=== PATIENT | female | born 1960 | race Caucasian/White ===

== ENCOUNTER 2020-03-02 16:10 | Emergency (ER) | payer SELFPAY ==
[2020-03-02] MEDS ORDERED: Sodium Chloride 0.9% 10 ML Syringe FLUSH PRN (16:30)
--- NOTE | 2020-03-02 16:34 | EDM.PDOC ---
ED HPI GENERAL MEDICAL PROBLEM - General Chief Complaint: General Stated Complaint: LOW POTASSIUM Time Seen by Provider: 03/02/20 16:24 Source of Information: Reports: Patient, RN Notes Reviewed History Limitations: Reports: No Limitations - History of Present Illness INITIAL COMMENTS - FREE TEXT/NARRATIVE: Patient is a 60-year-old female who presents to the ED for the evaluation of her low potassium. Patient went to the clinic to see her regular provider Carla White in [place], [place] and was found to have a low potassium level of 2.9. She was then sent here for evaluation. Patient notes that she has been having issues with diarrhea on and off since October. She does note that if for a few days it can get fairly bad where she has diffuse amounts of diarrhea, and then it gets better. She tries to drink Gatorade, Powerade and stick to clear liquid diet. She notes that Saturday was a pretty bad day for her. Otherwise she has a little bit of abdominal tenderness, her provider is working her up for gallbladder issues. Patient denies any other sick-like symptoms, fever/chills, cough/shortness of breath, nausea/vomiting/diarrhea. - Related Data Allergies Allergy/AdvReac Type Severity Reaction Status Date / Time No Known Allergies Allergy Verified 03/02/20 16:25 Home Meds: Home Meds Loratadine [Claritin] 10 mg PO DAILY 03/02/20 [History] Past Medical History - Past Surgical History Female Surgical History: Reports: Tubal Ligation Musculoskeletal Surgical History: Reports: Shoulder Surgery Social & Family History - Tobacco Use Tobacco Use Status *Q: Current Every Day Tobacco User Years of Tobacco use: 20 Packs/Tins Daily: 0.5 - Caffeine Use Caffeine Use: Reports: None - Recreational Drug Use Recreational Drug Use: No ED ROS GENERAL - Review of Systems Review Of Systems: Comprehensive ROS is negative, except as noted in HPI. ED EXAM, GENERAL - Physical Exam Exam: See Below Exam Limited By: No Limitations General Appearance: Alert, WD/WN, No Apparent Distress Respiratory/Chest: No Respiratory Distress, Lungs Clear, Normal Breath Sounds, No Accessory Muscle Use, Chest Non-Tender Cardiovascular: Normal Peripheral Pulses, Regular Rate, Rhythm, No Edema Peripheral Pulses: 2+: Radial (L), Radial (R) GI/Abdominal: Normal Bowel Sounds, Soft, No Distention, No Mass, Tender (mild tenderness to RUQ/epigastrium) Extremities: Normal Inspection, Normal Capillary Refill Neurological: Alert, Oriented, Normal Cognition, No Motor/Sensory Deficits Psychiatric: Normal Affect, Normal Mood Skin Exam: Warm, Dry, Intact, Normal Color, No Rash Course - Vital Signs Last Recorded V/S: Last Vital Signs Temp 97.6 F 03/02/20 16:23 Pulse 101 H 03/02/20 16:23 Resp 16 03/02/20 16:23 BP 151/93 H 03/02/20 16:23 Pulse Ox 100 03/02/20 16:23 - Orders/Labs/Meds Orders: Active Orders 24 hr Category Date Time Status Peripheral IV Care [RC] . DIRECTED Care 03/02/20 16:30 Ordered Sodium Chloride 0.9% [Normal Saline] 1,000 ml Med 03/02/20 17:45 Ordered IV ONETIME Sodium Chloride 0.9% [Saline Flush] Med 03/02/20 16:30 Ordered 10 ml FLUSH ASDIRECTED PRN Peripheral IV Insertion Adult [OM.PC] Routine Oth 03/02/20 16:30 Ordered Medication Orders Sodium Chloride (Normal Saline) 1,000 mls @ 250 mls/hr IV ONETIME ONE Stop: 03/02/20 21:44 Sodium Chloride (Saline Flush) 10 ml FLUSH ASDIRECTED PRN PRN Reason: Keep Vein Open Labs: Laboratory Tests 03/02/20 03/02/20 Range/Units 17:03 17:03 WBC 7.97 (3.98-10.04) K/mm3 RBC 4.59 (3.98-5.22) M/mm3 Hgb 13.2 (11.2-15.7) gm/dl Hct 40.0 (34.1-44.9) % MCV 87.1 (79.4-94.8) fl MCH 28.8 (25.6-32.2) pg MCHC 33.0 (32.2-35.5) g/dl RDW Std Deviation 45.3 (36.4-46.3) fL Plt Count 490 H (182-369) K/mm3 MPV 8.7 L (9.4-12.3) fl Neut % (Auto) 52.3 (34.0-71.1) % Lymph % (Auto) 36.6 (19.3-51.7) % Rogers % (Auto) 9.4 (4.7-12.5) % Eos % (Auto) 1.5 (0.7-5.8) Baso % (Auto) 0.1 (0.1-1.2) % Neut # (Auto) 4.16 (1.56-6.13) K/mm3 Lymph # (Auto) 2.92 (1.18-3.74) K/mm3 Rogers # (Auto) 0.75 H (0.24-0.36) K/mm3 Eos # (Auto) 0.12 (0.04-0.36) K/mm3 Baso # (Auto) 0.01 (0.01-0.08) K/mm3 Sodium 145 (136-145) mEq/L Potassium 2.7 L (3.5-5.1) mEq/L Chloride 106 (98-107) mEq/L Carbon Dioxide 24 (21-32) mEq/L Anion Gap 17.7 H (5-15) BUN 15 (7-18) mg/dL Creatinine 0.8 (0.55-1.02) mg/dL Est Cr Clr Drug Dosing 67.29 mL/min Estimated GFR (MDRD) > 60 (>60) mL/min BUN/Creatinine Ratio 18.8 H (14-18) Glucose 90 (74-106) mg/dL Calcium 9.5 (8.5-10.1) mg/dL Magnesium 1.9 (1.8-2.4) mg/dl Total Bilirubin 0.5 (0.2-1.0) mg/dL AST 15 (15-37) U/L ALT 22 (14-59) U/L Alkaline Phosphatase 117 H (46-116) U/L Total Protein 7.5 (6.4-8.2) g/dl Albumin 4.0 (3.4-5.0) g/dl Globulin 3.5 gm/dL Albumin/Globulin Ratio 1.1 (1-2) Meds: Medications Generic Name Dose Route Start Last Admin Trade Name Freq PRN Reason Stop Dose Admin Sodium Chloride 1,000 mls @ 250 mls/hr 03/02/20 17:45 Normal Saline IV 03/02/20 21:44 ONETIME ONE Sodium Chloride 10 ml 03/02/20 16:30 Saline Flush FLUSH ASDIRECTED PRN Keep Vein Open Discontinued Medications Generic Name Dose Route Start Last Admin Trade Name Danelle PRN Reason Stop Dose Admin Potassium Chloride 10 meq/ 100 mls @ 100 mls/hr 03/02/20 17:45 Premix IV 03/02/20 21:44 Q1H GEORGINA Potassium Chloride 40 meq 03/02/20 17:44 03/02/20 18:25 Klor-Con M20 PO 03/02/20 17:45 40 meq ONETIME ONE Administration Potassium Chloride 40 meq 03/02/20 18:08 03/02/20 18:25 Klor-Con M20 PO 03/02/20 18:09 40 meq ONETIME ONE Administration - Re-Assessments/Exams Free Text/Narrative Re-Assessment/Exam: 03/02/20 16:33 Patient presents to the ED for the evaluation of her low potassium. We will get repeat labs, along with a magnesium level, plan is to give IV supplementation and oral supplementation and redraw potassium and have her follow-up with her regular provider soon. 03/02/20 17:51 The patient's potassium level is 2.7 her magnesium level is within normal limits. We will give her 40 mg once p.o. potassium and 40 mg IV potassium, along with some IV fluids to help facilitate the IV potassium. 03/02/20 18:08 The patient states that she has to be back early in the morning for an ultrasound and would rather not stay for 4 hours for IV potassium. I have canceled the IV potassium and will supplement with another 40 mEq p.o. potassium. Patient will call her provider and have her labs rechecked tomorrow. Departure - Departure Time of Disposition: 18:31 Disposition: Home, Self-Care 01 Condition: Good Clinical Impression: Hypokalemia - Discharge Information *PRESCRIPTION DRUG MONITORING PROGRAM REVIEWED*: No *COPY OF PRESCRIPTION DRUG MONITORING REPORT IN PATIENT BRIATNY: No Instructions: Potassium Content of Foods Referrals: Marquita White NP [Primary Care Provider] - Forms: ED Department Discharge Additional Instructions: You were seen in the ER today for your low potassium level. This was at a level of 2.7, you were given 2 doses of oral potassium for supplementation of this. Highly recommend you get your potassium level drawn, sometime tomorrow to see if your levels are within normal limits. Please discuss with your primary care provider, oral supplementation over the next few days, or while you are having issues with your chronic diarrhea. You may also supplement your potassium in your diet, a list of potassium content for foods was given to you in your discharge packet. Please return to the ER at any time if symptoms change or worsen. Sepsis Event Note (ED) - Evaluation Sepsis Screening Result: No Definite Risk - Focused Exam Vital Signs: Vital Signs Temp Pulse Resp BP Pulse Ox 03/02/20 16:23 97.6 F 101 H 16 151/93 H 100 - My Orders Last 24 Hours: My Active Orders 03/02/20 16:30 Peripheral IV Care [RC] . DIRECTED Sodium Chloride 0.9% [Saline Flush] 10 ml FLUSH ASDIRECTED PRN Peripheral IV Insertion Adult [OM.PC] Routine 03/02/20 17:45 Sodium Chloride 0.9% [Normal Saline] 1,000 ml IV ONETIME - Assessment/Plan Last 24 Hours: My Active Orders 03/02/20 16:30 Peripheral IV Care [RC] . DIRECTED Sodium Chloride 0.9% [Saline Flush] 10 ml FLUSH ASDIRECTED PRN Peripheral IV Insertion Adult [OM.PC] Routine 03/02/20 17:45 Sodium Chloride 0.9% [Normal Saline] 1,000 ml IV ONETIME
[2020-03-02] MEDS ORDERED: Potassium Chloride 20 MEQ Tab.ER PO ONE ×2 (17:44→18:08)
[2020-03-02] MEDS ORDERED: Potassium Chloride 10 MEQ in Premix Bag 1 BAG IV SCH (17:45)
[2020-03-02] MEDS ORDERED: Sodium Chloride 0.9% 1,000 ML IV ONE (17:45)
== END 2020-03-02 18:45 | disposition home or self-care (01) ==
LOC: JD.ED 16:10
DX: E87.6 Hypokalemia (principal); Z72.0 Tobacco use
CPT/HCPCS: 36415; 80053; 83735; 85025; 99284; A9270; 99283

== ENCOUNTER 2020-03-16 06:53 | Day surgery (SDC) | payer SELFPAY ==
[2020-03-16] MEDS ORDERED: Sodium Chloride 0.9% 10 ML Syringe FLUSH PRN (07:00)
[2020-03-16] MEDS ORDERED: Lactated Ringers 1,000 ML IV SCH (07:00)
[2020-03-16] MEDS ORDERED: Lidocaine 1%/Sod Bicarbonate in NS 8.4% 1 ML Syringe IDERM PRN (07:00)
[2020-03-16] MEDS ORDERED: Ondansetron 4 MG/2 ML SDV ONE (07:11)
[2020-03-16] MEDS ORDERED: Rocuronium 50 MG/5 ML Vial ONE (07:11)
[2020-03-16] MEDS ORDERED: Lidocaine 1% 4 ML ONE (07:11)
[2020-03-16] MEDS ORDERED: fentaNYL 250 MCG/5 ML SDV ONE (07:12)
[2020-03-16] MEDS ORDERED: Midazolam 1 MG/ML 2 ML SDV ONE (07:12)
[2020-03-16] MEDS ORDERED: ceFAZolin 1 GM Vial ONE (07:12)
[2020-03-16] MEDS ORDERED: Propofol 200 MG/20 ML SDV ONE (07:12)
[2020-03-16] MEDS ORDERED: Dexamethasone 4 MG/ML 5 ML MDV ONE (07:12)
[2020-03-16] MEDS ORDERED: Bupivacaine 0.5%/EPINEPHrine 1:200,000 50 ML MDV ONE (07:20)
--- NOTE | 2020-03-16 07:33 | PCM.PREANE ---
Preanesthetic Assessment - Procedure Proposed Procedure: lap choley - Anesthesia/Transfusion/Family Hx Anesthesia History: Prior Anesthesia Without Reaction Family History of Anesthesia Reaction: No Transfusion History: No Prior Transfusion(s) - Review of Systems General: No Symptoms Pulmonary: No Symptoms Cardiovascular: No Symptoms Gastrointestinal: Diarrhea Neurological: No Symptoms Other: Reports: None - Physical Assessment NPO Status Date: 03/15/20 NPO Status Time: 17:00 Vital Signs: Last Vital Signs Temp 97.2 F 03/16/20 06:55 Pulse 86 03/16/20 06:55 Resp 16 03/16/20 06:55 BP 146/95 H 03/16/20 06:55 Pulse Ox 98 03/16/20 06:55 Height: 5 ft 5 in Weight: 82.1 kg ASA Class: 2 Mental Status: Alert & Oriented x3 Airway Class: Mallampati = 1 Dentition: Reports: Partial Thyro-Mental Finger Breadths: 3 Mouth Opening Finger Breadths: 3 ROM/Head Extension: Full Lungs: Clear to Auscultation, Normal Respiratory Effort Cardiovascular: Regular Rate, Regular Rhythm - Allergies Allergies/Adverse Reactions: Allergies Allergy/AdvReac Type Severity Reaction Status Date / Time No Known Allergies Allergy Verified 03/15/20 12:50 - Blood Blood Available: No - Acknowledgements Anesthesia Type Planned: General Anesthesia Pt an Appropriate Candidate for the Planned Anesthesia: Yes Alternatives and Risks of Anesthesia Discussed w Pt/Guardian: Yes Pt/Guardian Understands and Agrees with Anesthesia Plan: Yes PreAnesthesia Questionnaire HEENT History: Reports: Impaired Vision, Other (See Below) Other HEENT History: wears glasses Cardiovascular History: Reports: High Cholesterol Respiratory History: Reports: None Gastrointestinal History: Reports: None Genitourinary History: Reports: None [employer] History: Reports: None Neurological History: Reports: None Psychiatric History: Reports: None Endocrine/Metabolic History: Reports: Obesity/BMI 30+ Hematologic History: Reports: None Immunologic History: Reports: None Oncologic (Cancer) History: Reports: None Dermatologic History: Reports: None - Infectious Disease History Infectious Disease History: Reports: None - Past Surgical History Head Surgeries/Procedures: Reports: None HEENT Surgical History: Reports: None Cardiovascular Surgical History: Reports: None Respiratory Surgical History: Reports: None GI Surgical History: Reports: Colonoscopy, EGD, Other (See Below) Other GI Surgeries/Procedures: egd with balloon dilation for esophageal stricture Female Surgical History: Reports: Tubal Ligation Male Surgical History: Reports: None Endocrine Surgical History: Reports: None Neurological Surgical History: Reports: None Musculoskeletal Surgical History: Reports: Shoulder Surgery Other Musculoskeletal Surgeries/Procedures:: right shoulder surgery in 2018 Oncologic Surgical History: Reports: None Dermatological Surgical History: Reports: None - SUBSTANCE USE Tobacco Use Status *Q: Current Some Day Tobacco User (quit for a week) Tobacco Use Within Last Twelve Months: Cigarettes Second Hand Smoke Exposure: Yes Days Per Week of Alcohol Use: 1 Number of Drinks Per Day: 1 Total Drinks Per Week: 1 Recreational Drug Use History: No - HOME MEDS Home Medications: Home Meds Loratadine [Claritin] 10 mg PO DAILY PRN 03/02/20 [History] Acetaminophen [Tylenol] 650 mg PO Q4H PRN 03/15/20 [History] Fluticasone Propionate [Flonase] 1 dose NASBOTH DAILY PRN 03/15/20 [History] Melatonin 3 mg PO BEDTIME PRN 03/15/20 [History] Omeprazole Magnesium [Prilosec Otc] 20 mg PO DAILY 03/15/20 [History] Potassium Chloride 20 meq PO BID 03/15/20 [History] Valerian/Flower/Hops/Lemon [Valerian Root-Herbal 450Mg Cap] 1 cap PO BEDTIME PRN 03/15/20 [History] - CURRENT (IN HOUSE) MEDS Current Meds: Current Medications Lactated Ringer's (Ringers, Lactated) 1,000 mls @ 125 mls/hr IV ASDIRECTED GEORGINA Stop: 03/16/20 23:00 Lidocaine/Sodium Bicarbonate (Buffered Lidocaine 1% In Ns 8.4%) 0.25 ml IDERM ONETIME PRN PRN Reason: Prior to IV Start Stop: 03/16/20 23:00 Sodium Chloride (Saline Flush) 10 ml FLUSH ASDIRECTED PRN PRN Reason: Keep Vein Open Stop: 03/16/20 23:00 Discontinued Medications Bupivacaine HCl/Epinephrine Bitart (Marcaine 0.5%/Epinephrine 1:200,000) Confirm Administered Dose 50 ml .ROUTE .STK-MED ONE Stop: 03/16/20 07:21 Cefazolin Sodium (Ancef) Confirm Administered Dose 2 gm .ROUTE .STK-MED ONE Stop: 03/16/20 07:13 Dexamethasone (Dexamethasone) Confirm Administered Dose 20 mg .ROUTE .STK-MED ONE Stop: 03/16/20 07:13 Fentanyl (Sublimaze) Confirm Administered Dose 250 mcg .ROUTE .STK-MED ONE Stop: 03/16/20 07:13 Lidocaine HCl (Xylocaine-Mpf 1%) Confirm Administered Dose 4 mls @ as directed .ROUTE .STK-MED ONE Stop: 03/16/20 07:12 Midazolam HCl (Versed 1 Mg/Ml) Confirm Administered Dose 2 mg .ROUTE .STK-MED ONE Stop: 03/16/20 07:13 Ondansetron HCl (Zofran) Confirm Administered Dose 4 mg .ROUTE .STK-MED ONE Stop: 03/16/20 07:12 Propofol (Diprivan 20 Ml) Confirm Administered Dose 200 mg .ROUTE .STK-MED ONE Stop: 03/16/20 07:13 Rocuronium Stanley (Zemuron) Confirm Administered Dose 50 mg .ROUTE .STK-MED ONE Stop: 03/16/20 07:12
[2020-03-16] MEDS ORDERED: Ondansetron 4 MG/2 ML SDV IVPUSH PRN (08:06)
[2020-03-16] MEDS ORDERED: HYDROmorphone 0.5 MG/0.5 ML Syringe IVPUSH PRN (08:06)
[2020-03-16] MEDS ORDERED: fentaNYL 100 MCG/2 ML SDV IVPUSH PRN (08:06)
[2020-03-16] MEDS ORDERED: Ketamine 500 mg/10 ML MDV ONE (08:16)
[2020-03-16] MEDS ORDERED: Lactated Ringers 1,000 ML ONE (08:19)
[2020-03-16] MEDS ORDERED: HYDROmorphone 0.5 MG/0.5 ML Syringe ONE (08:31)
[2020-03-16] MEDS ORDERED: Ketorolac 30 MG/ML SDV ONE (08:55)
--- NOTE | 2020-03-16 09:04 | PCM.PRNOTE ---
- Free Text/Narrative Note: Date: 03/16/2020 Operation: laparoscopic cholecystectomy Surgeon: Navin Mckee MD EBL: 10 cc Antibiotic: 2 g ancef IV pre-op Findings: mild chronic cholecystitis. Critical view of safety obtained. Small amount of bile spillage. Detailed Report: The patient was taken to the operating room and placed in supine position. Timeout was performed, and general endotracheal anesthesia was initiated. The abdomen was prepped and draped in usual sterile fashion. A Veress needle was placed in the left upper quadrant to establish pneumoperitoneum. A bladed 5 mm trocar was placed just inferior to the umbilicus, and a 5 mm 30 degree laparoscope was inserted into the abdomen. The site of Veress insertion looked good with no inadvertent injury sustained. Additional ports were placed under laparoscopic vision. 2 5 mm ports were placed in the right upper quadrant, and a 12 mm bladed trocar was placed in the subxiphoid area. A locking grasper was placed through the right lateralmost port and the fundus of the gallbladder was grasped and retracted cephalad. The infundibulum was retracted laterally, and dissection ensued. Monopolar energy was used to take the visceral peritoneum off the gallbladder at this site. Cystic structures were identified and skeletonized. A critical view of safety of the cystic duct and artery were obtained. Hemoclips were placed on the structures, and they were transected with laparoscopic scissors. Monopolar energy was used to dissect the gallbladder off the liver. During this portion of dissection, a small hole was made in the gallbladder and a small amount of thin clear yellow bile was spilled from the gallbladder. The gallbladder was placed in Endo Catch bag and removed through the subxiphoid site. The field of dissection was irrigated and suctioned dry. Hemostasis was satisfactory. The 12 mm port was removed, and under laparoscopic visualization the fascia was closed with 0 Vicryl suture using a laparoscopic suture passer. Other ports were removed under laparoscopic visualization, and pneumoperitoneum was released. All incisions were closed at the level of skin with 4-0 Vicryl and dressed with Dermabond. The patient tolerated the procedure well.
--- NOTE | 2020-03-16 09:11 | PCM.POSTAN ---
POST ANESTHESIA ASSESSMENT - MENTAL STATUS Mental Status: Alert, Oriented - VITAL SIGNS Vital Signs: Last Vital Signs Temp 97.3 F 03/16/20 08:57 Pulse 71 03/16/20 08:57 Resp 19 03/16/20 08:57 BP 151/80 H 03/16/20 08:57 Pulse Ox 94 L 03/16/20 08:57 - RESPIRATORY Respiratory Status: Respiratory Rate WNL, Airway Patent, O2 Saturation Stable, Supplemental Oxygen - CARDIOVASCULAR CV Status: Pulse Rate WNL, Blood Pressure Stable - GASTROINTESTINAL GI Status: No Symptoms - PAIN Pain Score: 2 - POST OP HYDRATION Hydration Status: Adequate & Stable
--- NOTE | 2020-03-16 11:10 | PCM48HPAN ---
Post Anesthesia Note - EVALUATION WITHIN 48HRS OF ANESTHETIC Vital Signs in Normal Range: Yes Patient Participated in Evaluation: Yes Respiratory Function Stable: Yes Airway Patent: Yes Cardiovascular Function Stable: Yes Hydration Status Stable: Yes Pain Control Satisfactory: Yes Nausea and Vomiting Control Satisfactory: Yes Mental Status Recovered: Yes Vital Signs: Last Vital Signs Temp 97.9 F 03/16/20 10:30 Pulse 72 03/16/20 10:30 Resp 12 03/16/20 10:30 BP 144/71 H 03/16/20 10:30 Pulse Ox 97 03/16/20 10:30 - COMMENTS/OBSERVATIONS Free Text/Narrative:: Patient sitting up in bed. She wants to go home. Little pain
== END 2020-03-16 11:34 | disposition home or self-care (01) ==
LOC: JD.SDS 06:53
PROVIDERS: ATTEND Surgery
DX: K80.10 Calculus of gallbladder with chronic cholecystitis without obstruction (principal); E78.00 Pure hypercholesterolemia, unspecified; E66.9 Obesity, unspecified; F17.210 Nicotine dependence, cigarettes, uncomplicated; Z79.899 Other long term (current) drug therapy; Z98.890 Other specified postprocedural states; Z68.30 Body mass index [BMI] 30.0-30.9, adult
CPT/HCPCS: 00790; 93005; J0690; J1100; J1170; J1885; J2001; J2250; J2405; J2704; J2710; J3010; J3490; J7120